=== PATIENT | female | born 1950 | race Caucasian/White ===

== ENCOUNTER 2016-09-28 16:24 | Emergency (ER) | payer MEDICARE, OTHER ==
[~2016-09-28] VITALS: Ht 172.7 cm; Wt 81.8 kg
[2016-09-28 16:27] VITALS: BP 161/94; PULSE 79; RESP 16; O2SAT 97
--- NOTE | 2016-09-28 16:38 | ED.REPORT ---
HPI-Neurologic Deficit Date of Service Sep 28, 2016 ED Provider: Drew Boston DO A 65 year old female with no pertinent medical history presents to the ED complaining of a headache that began earlier this afternoon. Patient was sent from Urgent Care after presenting with concerning neurological symptoms. She was hypertensive at Urgent Care. Associated symptoms include numbness/tingling in her finger tips and discomfort in her left arm. She denies any changes in vision, severe headache, SOB, nausea, vomiting, weakness or pain. Patient denies history of migraines. She denies any current medications and does not take any BP medication. Nursing Notes Stated Complaint: BLOOD PRESSURE ISSUE SENT BY URGENT CARE Chief Complaint: General Complaint Nursing Notes Reviewed: Yes Allergies: Coded Allergies: No Known Allergies (Verified Allergy, Unknown, 09/28/16) Scheduled Lisinopril (Lisinopril) 20 Mg Tablet 20 MG PO DAILY General Time Seen by Provider: 16:35 Chief Complaint Other (Headache) Hx Obtained From: Patient Arrived By: Walk-in Sudden in Onset?: No Onset Occurred: 1 - 4 hours ago Symptom Duration: Since onset Progression Since Onset: Unchanged Location: : Head Quality: Aching Radiation: : Does not radiate Severity: Current: Mild Severity: Maximum: Moderate Associated with: Reports: Headache, Denies: Nausea, Visual disturbance, Vomiting, Weakness Additional Notes: Numbness/pain left arm Pertinent Negative: Pt denies other symptoms Recent Healthcare: No recent doctor visit, No recent hospitalization Past Medical History Past Medical History Denies Past Surgical History None reported. Family History Mother hx of hypertension Smoking History Never Smoker Social History Alcohol Use: 1-3 per day Drug Use: Denies drug use Other Social History: Good social support, Local resident Ambulatory Status Independent Review of Systems Constitutional: Denies: Chills, Fever Respiratory: Denies: Shortness of breath Cardiovascular: Denies: Chest pain GI: Denies: Abdominal pain, Nausea, Vomiting Musculoskeletal: Reports: Extremity pain (left arm discomfort ) Neurologic: Reports: Headache, Numbness (fingertips ), Denies: Change LOC, Vision change, Weakness Psychiatric: Reports: Stress Complete sys rev & neg: except as marked. Physical Exam Initial Vital Signs Vital Signs (First) Date Time Temp Pulse Resp B/P Pulse Ox O2 Delivery O2 Flow Rate FiO2 09/28/16 16:27 36.4 79 16 161/94 97 Room Air Initial VS: Reviewed Neck: Supple, Non-tender, Full range of motion Extremities: Vascular intact, Neuro intact, No swelling, No tenderness Skin: Warm, Dry, No cyanosis Psychiatric: Mood/affect normal, Behavior normal, Normal thought content General/Constitutional: Awake, Alert Head / Eyes: Atraumatic, Normocephalic, PERRL Respiratory / Chest: Atraumatic, Breath sounds NL, Breath sounds = bilat Cardiovascular: Heart rate NL, Regular rhythm, Heart sounds NL Neurologic: Oriented X3, Speech NL, No motor deficits, No sensory deficits, CN II - XII intact, Reflexes equal bilat, Cerebellar NL, Memory NL, Gait NL NEURO: Normal finger-nose Re-Eval/Medical Decision Med Decision/Clinical Course This patient left AGAINST MEDICAL ADVICE. Patient had a minor headache however had associated paresthesia of the left arm which was nonreproducible. There were no measurable stroke deficits on physical exam, overall her symptoms did not sound like acute coronary syndrome however, given the associated arm paresthesia, I felt that she may benefit from further diagnostic evaluation which likely would have included a head CT, CBC CMP troponin and EKG. She was pleasant and generally agreeable patient however had other errands to attend to for the evening and did not wish to stay for any diagnostic evaluation. She is strongly encouraged to return the ER or follow up with a primary care doctor for evaluation of this issue. She is placed on lisinopril and aspirin, first dose is given in the ER. She is strongly encouraged to return to the ER immediately if there is a progression of her symptoms is suggestive of either stroke or heart attack. These were further explained verbally and also written discharge instructions were given. Re-Evaluation/Progress : Time of Eval: 16:52 Patient Status: Condition improved Re-Evaluation/Progress Note: Patient is rechecked. She reports that she would like to leave AMA and has been informed of the risks. She is advised to stay and is still seeking discharge. She eports that she would like to return tomorrow. Counseled Regarding: Diagnosis, Need for follow-up, When/why to return to ED Discharge & Departure Impression: Primary Impression: Hypertension Hypertension type: other secondary hypertension Hypertension goal: unspecified goal Qualified Code: I15.8 - Other secondary hypertension Disposition: AGAINST MEDICAL ADVICE Discharge Condition All VS Reviewed: Yes Condition: Improved Patient Instructions: Chronic Hypertension (ED) Additional Instructions: Thank you for trusting us with your care this afternoon. I understand that you don't want to stay for any further testing, however I highly recommend you come back tomorrow for a full workup. Please take Lisinopril as directed and I recommend you take 81mg Aspirin daily. Schedule a follow up with a primary care physician in the next 2-3 days for a recheck. Please return to the emergency department immediately for any new or worsening conditions including any difficulty breathing, weaknesses, paralysis, numbness/ tingling, fevers, or chest pain. Referrals: Yina Chow MD (PCP) Scribe Attestation Portions of this note were transcribed by José Miguel Raymond. I, Dr. Tor Santana personally performed the history, physical exam and medical decision-making; I reviewed and confirmed the accuracy of the information in the transcribed note. Signed by: Tyra Soares, 09/28/16 1720. copies to: Yina Chow MD, Timothy S DO Sep 28, 2016 16:38 JOSÉ MIGUEL RAYMOND Sep 28, 2016 16:51
[2016-09-28] MEDS ORDERED: LISI-567 PO (17:00)
== END 2016-09-28 17:24 | disposition left against medical advice (07) ==
LOC: SED 16:24
DX: I10 Essential (primary) hypertension (principal)

== ENCOUNTER 2016-09-29 08:44 | Emergency (ER) | payer MEDICARE ==
[~2016-09-29] VITALS: Ht 172.7 cm; Wt 81.8 kg
[~2016-09-29 08:44] MED LIST: LISI-567 PO
[2016-09-29 08:53] VITALS: BP 142/91; PULSE 71; RESP 18; O2SAT 99
--- NOTE | 2016-09-29 09:15 | ED.REPORT ---
HPI-General Illness Date of Service Sep 29, 2016 ED Provider: Dr. Boston Pt is a 65 y/o female presenting to the ED for a blood pressure check. The patient was seen in the ED yesterday after presenting to Urgent Care with headache and numbness and tingling of the fingertips and was found to be hypertensive. She denied any workup when she arrived to the ED because she had errands to run so it was recommended that she return today. She left AMA. She is asymptomatic today. Nursing Notes Stated Complaint: BLOOD PRESSURE TESTING Chief Complaint: General Complaint Nursing Notes Reviewed: Yes Allergies: Coded Allergies: No Known Allergies (Verified Allergy, Unknown, 09/28/16) Scheduled Lisinopril (Lisinopril) 20 Mg Tablet 20 MG PO DAILY General Time Seen by MD: 09:15 Chief Complaint Other (BP check) Hx Obtained From: Patient Arrived By: Walk-in Onset Occurred: Yesterday Symptom Duration: Since onset Severity: Current: No pain currently Severity: Maximum: No pain Recent Healthcare: Recent doctor visit Past Medical History Past Medical History Anxiety Depression Suicide attempt - salicylates Past Surgical History None reported. Family History Mother hx of hypertension Smoking History Never Smoker Social History Alcohol Use: 1-3 per day Drug Use: Denies drug use Other Social History: Good social support, Local resident Ambulatory Status Independent Review of Systems Full Review of Systems Constitutional: Denies: Chills, Fever Cardiovascular: Denies: Chest pain, Dyspnea on exertion GI: Denies: Abdominal pain, Nausea, Vomiting Neurologic: Denies: Focal weakness, Headache, Numbness Complete sys rev & neg: except as marked. Physical Exam Vital Signs Vital Signs Date Time Temp Pulse Resp B/P Pulse Ox O2 Delivery O2 Flow Rate FiO2 09/29/16 09:35 36.0 70 18 138/87 99 09/29/16 08:53 35.8 71 18 142/91 99 Initial VS: Reviewed, Vital signs normal Head / Eyes: Atraumatic, Normocephalic, PERRL ENT: Mucous membranes moist, Conjunctiva normal, No scleral icterus Neck: Supple, Full range of motion Respiratory: Breath sounds normal, Clear to auscultation, No respiratory distress Cardiovascular: Regular rate & rhythm, Heart sounds normal, Intact distal pulses Abdomen / GI: Soft, Non-tender Extremities: Vascular intact, Neuro intact, No swelling, No tenderness Skin: Warm, Dry, No cyanosis Psychiatric: Mood/affect normal, Behavior normal, Normal thought content Neurologic: Oriented X3, Speech NL, No motor deficits, No sensory deficits, CN II - XII intact, Cerebellar NL, Memory NL Interpretation & Diagnostics Lab Results Interpretation Result Diagram: 09/29/16 0940 Test 09/29/16 09:40 Sodium Level 142mEq/L (134-144) Potassium Level 4.6mEq/L (3.5-5.2) Chloride Level 104mEq/L (97-108) Carbon Dioxide Level 25mmol/L (18-29) Blood Urea Nitrogen 19mg/dL (8-27) Creatinine 0.70mg/dL (0.57-1.00) Estimat Glomerular Filtration Rate 120mL/min (>59) Glucose Level 93mg/dL (60-99) Calcium Level 9.1mg/dL (8.5-10.1) Hold Carroll Top Tube Received (Received) Re-Eval/Medical Decision Med Decision/Clinical Course No indication of any ongoing symptoms which could be construed as acute coronary syndrome or stroke. Her pressure well controlled, patient agrees to follow-up with primary care, return and follow-up precautions given. Time of Eval: 09:27 Re-Evaluation/Progress Note: Pt rechecked. She is requesting to go home and be called with her lab results. Informed pt of plan for treatment. Pt understands and agrees with plan for treatment. F/U and RTER warnings given. All questions addressed. Counseled Regarding: Diagnosis, Need for follow-up, When/why to return to ED Discharge & Departure Primary Impression: Hypertension Hypertension type: unspecified secondary hypertension Hypertension goal: unspecified goal Qualified Code: I15.9 - Secondary hypertension, unspecified Disposition: Home Discharge Condition All VS Reviewed: Yes Condition: Stable Additional Instructions: I am so glad you are feeling better. Continue taking lisinopril and 81 mg of aspirin daily We will call you with the results of your kidney function. You should call Friday morning to follow-up with a primary care doctor. Return to the ER if you develop concerning signs or symptoms for stroke, heart attack or any other life-threatening concerns Referrals: NOPCP (PCP) Scribe Attestation Portions of this note were transcribed by Piero Suresh. I, Dr. O'Esther personally performed the history, physical exam and medical decision-making; I reviewed and confirmed the accuracy of the information in the transcribed note. Signed by Tyra Solorzano, 09/29/16 - 929 Drew Boston DO Sep 29, 2016 09:15 PIERO SURESH Sep 29, 2016 09:27
[2016-09-29 09:35] VITALS: BP 138/87; PULSE 70; RESP 18; O2SAT 99
== END 2016-09-29 10:03 | disposition home or self-care (01) ==
LOC: SED 08:44
DX: I15.9 Secondary hypertension, unspecified (principal)